=== PATIENT | female | born 1945 | race Caucasian/White ===

== ENCOUNTER 2017-03-21 13:35 | Emergency (ER) | payer MEDICARE, BC ==
[~2017-03-21] VITALS: Ht 165.1 cm; Wt 57.5 kg
[~2017-03-21 13:35] MED LIST: 1-ME1LIQ PO; BENA20TA PO; BENZ100 PO; FAMO1TAB36 PO; LEVO75TA3 PO; LORT5TAB PO; METH750T2 PO; SIMV20 PO; TOPR50TA PO
[2017-03-21 13:46] VITALS: BP 130/55; PULSE 98; RESP 16; TEMP 98.4; O2SAT 97
[2017-03-21] MEDS ORDERED: TOPR50TA PO (13:51)
[2017-03-21] MEDS ORDERED: BENA5TAB PO (13:51)
[2017-03-21] MEDS ORDERED: AMLO5TAB2 PO (13:51)
[2017-03-21] MEDS ORDERED: ONDANSETRON HCL 4 MG/2 ML VIAL IV PUSH ONE (14:00)
[2017-03-21] MEDS ORDERED: SODIUM CHLORID 0.9% 500 ML INJ 500 ML IV ONE (14:00)
[2017-03-21] MEDS ORDERED: MECLIZINE HCL 25 MG TAB PO ONE (14:00)
--- NOTE | 2017-03-21 14:00 | PD ---
HPI Chief Complaint: Dizziness Time Seen by Provider: 13:52 Travel History International Travel<30 days: No Contact w/Intl Traveler<30days: No Traveled to known affect area: No History of Present Illness HPI 71-year-old female complains of dizziness and nausea. 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 Patient states that the symptom is worse with head movement. Patient denies any headache. Patient denies any visual change. Patient denies any neck pain. Patient denies any chest pain or shortness of breath. Patient denies abdominal pain. Patient denies any focal weakness or numbness of extremity. Patient states that she has nausea but no vomiting or diarrhea. Patient denied dysuria or frequency. PFSH Past Medical History Arthritis: Yes (NECK, HIPS) Cancer: No Cardiovascular Problems: Yes High Cholesterol: Yes Diabetes: No Diminished Hearing: No Endocrine: Yes Gastrointestinal Disorders: No Genitourinary: No Headaches: Yes (DUE TO BULGING DISCS) Hypertension: Yes Immune Disorder: No Implanted Vascular Access Dvce: No Musculoskeletal: Yes Neurologic: Yes Reproductive: No Respiratory: No Immunizations Current: Yes Thyroid Disease: Yes (CANT TOLERATE THYROID MEDS) ?: Not Menopausal: Yes Past Surgical History Abdominal Surgery: Yes (CHOLESYSECTOMY) Cardiac Surgery: Yes (2 HEART CATHERIZATIONS NO STENTS) Cholecystectomy: Yes Eye Surgery: Yes (CATARACT REMOVAL) Gynecologic Surgery: Yes (HYSTERECTOMY) Hysterectomy: Yes Other Surgery: Yes (LEFT BREAST BIOPSY) Social History Alcohol Use: Yes (rarely) Tobacco Use: No (1/2 ppd) Substance Use: No Allergies-Medications (Allergen,Severity, Reaction): Coded Allergies: Morphine (Verified Allergy, Severe, Headache, 10/07/15) Codeine (Verified Allergy, Intermediate, nausea and vomiting, 10/07/15) Keflex (Verified Allergy, Mild, GI UPSET, 10/07/15) Tetracycline (Verified Allergy, Mild, GI UPSET, 10/07/15) Reported Meds & Prescriptions Reported Meds & Active Scripts Active Reported Benazepril (Benazepril HCl) 5 Mg Tab 5 Mg PO DAILY Amlodipine (Amlodipine Besylate) 5 Mg Tab 5 Mg PO BID Toprol XL (Metoprolol Succinate) 50 Mg Tab 50 Mg PO BID Review of Systems General / Constitutional: No: Fever Eyes: No: Visual changes HENT: Positive: Lightheadedness, No: Headaches Cardiovascular: No: Chest Pain or Discomfort Respiratory: No: Shortness of Breath Gastrointestinal: Positive: Nausea, No: Abdominal Pain Genitourinary: No: Dysuria Musculoskeletal: No: Pain Skin: No Rash Neurologic: No: Weakness Psychiatric: No: Depression Endocrine: No: Polydipsia Hematologic/Lymphatic: No: Easy Bruising Physical Exam Narrative GENERAL: Well-nourished, well-developed patient. SKIN: Focused skin assessment warm/dry. HEAD: Normocephalic. EYES: No scleral icterus. No injection or drainage. Pupils 3 mm equal reactive. NECK: Supple, trachea midline. No JVD or lymphadenopathy. CARDIOVASCULAR: Regular rate and rhythm without murmurs, gallops, or rubs. RESPIRATORY: Breath sounds equal bilaterally. No accessory muscle use. GASTROINTESTINAL: Abdomen soft, non-tender, nondistended. MUSCULOSKELETAL: No cyanosis, or edema. BACK: Nontender without obvious deformity. No CVA tenderness. Neurologic exam: Patient's awake and alert oriented 3. No obvious focal neurological deficit. Data Data Last Documented VS Vital Signs Date Time Temp Pulse Resp B/P Pulse Ox O2 Delivery O2 Flow Rate FiO2 03/21/17 14:18 97 Room Air 03/21/17 13:46 98.4 98 16 130/55 Orders Meclizine (Antivert) (03/21/17 14:00) Ondansetron Inj (Zofran Inj) (03/21/17 14:00) Sodium Chlorid 0.9% 500 Ml Inj (Ns 500 M (03/21/17 14:00) Complete Blood Count With Diff (03/21/17 13:54) Basic Metabolic Panel (Bmp) (03/21/17 13:54) Ct Brain W/O Iv Contrast(Rout) (03/21/17 13:54) Iv Access Insert/Monitor (03/21/17 13:54) Ecg Monitoring (03/21/17 13:54) Oximetry (03/21/17 13:54) Electrocardiogram (03/21/17 13:42) Labs Laboratory Tests Test 03/21/17 14:11 White Blood Count 7.2 TH/MM3 Red Blood Count 3.52 MIL/MM3 Hemoglobin 9.4 GM/DL Hematocrit 28.7 % Mean Corpuscular Volume 81.6 FL Mean Corpuscular Hemoglobin 26.9 PG Mean Corpuscular Hemoglobin 32.9 % Concent Red Cell Distribution Width 14.3 % Platelet Count 327 TH/MM3 Mean Platelet Volume 8.2 FL Neutrophils (%) (Auto) 61.4 % Lymphocytes (%) (Auto) 28.0 % Monocytes (%) (Auto) 8.7 % Eosinophils (%) (Auto) 1.5 % Basophils (%) (Auto) 0.4 % Neutrophils # (Auto) 4.5 TH/MM3 Lymphocytes # (Auto) 2.0 TH/MM3 Monocytes # (Auto) 0.6 TH/MM3 Eosinophils # (Auto) 0.1 TH/MM3 Basophils # (Auto) 0.0 TH/MM3 CBC Comment DIFF FINAL Differential Comment Sodium Level 133 MEQ/L Potassium Level 4.2 MEQ/L Chloride Level 97 MEQ/L Carbon Dioxide Level 26.2 MEQ/L Anion Gap 10 MEQ/L Blood Urea Nitrogen 18 MG/DL Creatinine 1.10 MG/DL Estimat Glomerular Filtration 49 ML/MIN Rate Random Glucose 105 MG/DL Calcium Level 9.0 MG/DL [facility] Medical Decision Making Medical Screen Exam Complete: Yes Emergency Medical Condition: Yes Interpretation(s) Last Impressions Head CT 03/21/17 1354 Signed Impressions: Service Date/Time: Tuesday, March 21, 2017 14:55 - CONCLUSION: Patchy periventricular and subcortical white matter hypodensity which may be microvascular ischemic. No evidence of hemorrhage or other acute process. Peter Chapman MD 1543 PM. CBC with hemoglobin 9.4 hematocrit 28.7. Sodium 133. Creatinine 1.1. Differential Diagnosis Differential diagnosis including acute vertigo, electrolyte imbalance, dehydration, intracranial pathology. Narrative Course 71-year-old female with dizziness and nausea with head movement. Meclizine 25 mg by mouth. Zofran 4 mg IV. Normal saline solution 500 cc IV bolus. Diagnosis Primary Impression: Acute onset of severe vertigo Patient Instructions: General Instructions Additional Instructions: Meclizine as needed for dizziness. Zofran as needed for nausea. Follow-up with personal physician and ENT. Return if persistent problem or worse. Med/Other Pt SpecificInfo: Prescription(s) given Scripts Ondansetron Odt (Zofran Odt)4 Mg Tab4 Mg SL Q6HR PRN (Nausea/Vomiting) #10 TAB Ref 0 Prov:Gagan He MD 03/21/17 Meclizine 25 Mg Tab25 Mg PO TID PRN (VERTIGO) #21 TAB Ref 0 Prov:Gagan He MD 03/21/17 Disposition: 01 DISCHARGE HOME Condition: Stable Gagan He MD March 21, 2017 14:00
[2017-03-21 14:18] VITALS: O2SAT 97
[2017-03-21 14:35] LABS: AUTOMATED NEUTROPHIL # 4.5 TH/MM3 (1.8-7.7); BASOPHIL % 0.4 % (0.0-2.0); EOSINOPHIL # 0.1 TH/MM3 (0-0.4); EOSINOPHIL % 1.5 % (0.0-4.0); HEMATOCRIT 28.7 % (35.0-46.0); HEMO FLAGS DIFF FINAL; MEAN CELL VOLUME 81.6 FL (80.0-100.0); MEAN CORPUSCULAR HEMOGLOBIN 26.9 PG (27.0-34.0); MEAN CORPUSCULAR HGB CONC 32.9 % (32.0-36.0); MONO % 8.7 % (0.0-8.0); NEUT % 61.4 % (16.0-70.0); PLATELET COUNT 327 TH/MM3 (150-450); RED BLOOD COUNT 3.52 MIL/MM3 (4.00-5.30); RED CELL DISTRIBUTION WIDTH 14.3 % (11.6-17.2); WHITE BLOOD COUNT 7.2 TH/MM3 (4.0-11.0)
[2017-03-21 14:42] LABS: POTASSIUM 4.2 MEQ/L (3.5-5.1)
[2017-03-21 14:46] LABS: BICARBONATE 26.2 MEQ/L (21.0-32.0)
[2017-03-21 15:15] VITALS: BP 107/52; PULSE 86; RESP 18; O2SAT 97
--- NOTE | 2017-03-21 15:36 | RADHPO ---
EXAM DATE/TIME: 03/21/2017 14:55 [facility] COMPARISON: No previous studies available for comparison. INDICATIONS : Dizziness with nausea. RADIATION DOSE: 64.30 CTDIvol (mGy) MEDICAL HISTORY : Hypertension. SURGICAL HISTORY : None. ENCOUNTER: Initial ACUITY: 1 day PAIN SCALE: 0/10 LOCATION: cranial TECHNIQUE: Multiple contiguous axial images were obtained of the head. Using automated exposure control and adj ustment of the mA and/or kV according to patient size, radiation dose was kept as low as reasonably a chievable to obtain optimal diagnostic quality images. FINDINGS: There is patchy hypodensity in deep white matter structures. No evidence of intracranial mass or hemo rrhage. Nothing to suggest acute infarction. Extracranial structures are benign and intact. CONCLUSION: Patchy periventricular and subcortical white matter hypodensity which may be microvascular ischemic. No evidence of hemorrhage or other acute process. Peter Chapman MD on March 21, 2017 at 15:33 Board Certified Radiologist. This report was verified electronically.
[2017-03-21] MEDS ORDERED: ZOFR4TAB3 SL (15:51)
[2017-03-21] MEDS ORDERED: MECL-62 PO (15:51)
--- NOTE | 2017-03-22 17:36 | EKG ---
Date Performed: 03/21/2017 Time Performed: 13:42:50 PTAGE: 71 years EKG: Sinus rhythm . Normal ECG PREVIOUS TRACING : 02/12/2014 07.52 Compared to prior tracing no significant change DOCTOR: Aftab Landry Interpretating Date/Time 03/22/2017 17:36:04
== END 2017-03-21 16:05 | disposition home or self-care (01) ==
LOC: PHED 13:35
DX: R42 Dizziness and giddiness (principal); R11.0 Nausea; E78.00 Pure hypercholesterolemia, unspecified; I10 Essential (primary) hypertension; E07.9 Disorder of thyroid, unspecified; F17.200 Nicotine dependence, unspecified, uncomplicated
CPT/HCPCS: 70450; 80048; 85025; 93005; 96361; 96374; 99285; J2405; J7040

== ENCOUNTER 2018-04-27 09:18 | Observation (INO) ==
[2018-04-28] MEDS ORDERED: Naloxone Inj 0.4 MG/ML Vial IV.PUSH PRN (00:01)
[2018-04-28] MEDS ORDERED: Levothyroxine 75 MCG Tablet PO SCH (06:00)
[2018-04-28] MEDS ORDERED: Lisinopril 20 MG Tablet PO SCH (09:00)
[2018-04-28] MEDS ORDERED: amLODIPine 5 MG Tablet PO SCH (09:00)
== END 2018-04-27 19:00 | disposition home or self-care (01) ==
LOC: PH3 09:18 → PHEDA 09:18 → PH3 10:30
PROVIDERS: ADMIT Hospitalist; ATTEND Hospitalist